=== PATIENT | female | born 1980 | race African-American/Black ===

== ENCOUNTER 2022-05-10 12:26 | Outpatient (REF) | payer OTHER, SELFPAY ==
[2022-05-10 14:48] LABS: Alanine Aminotransferase 30 U/L (0-31); Albumin Level 4.4 g/dL (3.5-5.0); Alkaline Phosphatase 106 U/L (39-117); Anion Gap 12 (12-20); Aspartate Amino Transferase 27 U/L (5-31); Bilirubin Total 0.5 mg/dL (0.0-1.0); Blood Urea Nitrogen 10 mg/dL (9-16); Calcium 9.6 mg/dL (8.4-10.2); Carbon Dioxide 27 mmol/L (22-29); Chloride 105 mmol/L (96-108); Estimated Glomerular Filt Rate > 60; Glucose Random 85 mg/dL (60-115); Potassium 3.9 mmol/L (3.3-5.1); Sodium 140 mmol/L (135-145); Total Protein 7.3 g/dL (6.5-8.0)
[2022-05-10 14:50] LABS: TSH reflex Free T4 1.35 uIU/mL (0.32-4.0); Vitamin D 25-OH Total 40.7 ng/mL (>30)
== END 2022-05-10 12:27 | disposition home or self-care (01) ==
LOC: HO.HMGCLDS 12:26
PROVIDERS: PCP Internal Medicine; Visit Provider Internal Medicine
DX: Z00.00 Encounter for general adult medical examination without abnormal findings (principal); Z83.71 Family history of colonic polyps
CPT/HCPCS: 36415; 80053; 82306; 84443

== ENCOUNTER 2023-05-15 10:40 | Outpatient (AMB) | payer OTHER, SELFPAY ==
[2023-05-15 10:50] VITALS: BP 108/66; PULSE 65; O2SAT 99; BMI 21.6
--- NOTE | 2023-05-15 10:50 | MHC.PC.OV ---
Vital Signs 05/15/23 10:50 Height 5 ft 3 in Weight 122 lb BMI 21.6 BP 108/66 Blood Pressure Location Lt brachial Position Sitting Pulse 65 Pulse Source Pulse Oximeter Pulse Oximetry (%) 99 Oxygen Delivery Method Room Air Intake Visit Reasons: Annual PE Intake Note: Pt is here today for a PE. 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 Allergies bupropion [From Wellbutrin] Allergy (Verified 05/15/23 10:52) Hives Medication List - Last Reconciled 05/15/23 by Kenia Lui MD multivitamin 1 tab PO DAILY sertraline (Zoloft) 25 mg PO DAILY Tobacco use date assessed: 05/15/23 Dental Screening Dental Screen Date: 05/15/23 Did you have a dental visit in the last 12 months?: Yes Did you have a dental problem in the last 6 months where you did not have access to dental care?: No Was dental information given to patient?: Patient has dentist HPI Annual PE HPI Details Pt presents for PE. Pt is going through a divorce. She has been seeing a counselor and would like to try low-dose of antidepressant. She denies insomnia suicidal ideation and reports good appetite. Patient has a [id number] baby boy. [facility] Medical History Hx of endometriosis History of miscarriage Surgical History Hx of section Family History Mother Hypertension Kidney disease Father No problems noted. 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 1. Little interest or pleasure in doing things: not at all 2. Feeling down, depressed, or hopeless: several days 3. Trouble falling or staying asleep, or sleeping too much: not at all 4. Feeling tired or having little energy: several days 5. Poor appetite or overeating: not at all 6. Feeling bad about yourself - or that you are a failure or have let yourself or your family down: not at all 7. Trouble concentrating on things, such as reading the newspaper or watching television: not at all 8. Moving or speaking so slowly that other people could have noticed. Or the opposite - being so fidgety or restless that you have been moving around a lot more than usual: not at all 9. Thoughts that you would be better off or of hurting yourself in some way: not at all Total score: 2 Depression Screening Interpretation: Negative Depression Screening Done: Yes Source: Developed by Drs. West Chávez, Stephenie Dowell, Thee Camacho and colleagues, with an educational kriss from [employer]. Thrive Questionnaire Date Thrive assessed: 05/15/23 I am a: Patient What is your living situation today?: I have a steady place to live Within the past 12 months, did the food you bought not last and you didn't have the money to get more?: Never true Within the past 12 months, did you worry whether your food would run out before you got money to buy more?: Never true Do you have trouble paying for medicines?: No Do you have trouble getting transportation to medical appointments?: No Do you have trouble paying your heating and electricity bill?: No Do you have trouble taking care of your child, family member or friend?: No Do you have trouble with day-to-day activities such as bathing, preparing meals, shopping, managing finances, etc.?: No Are you currently unemployed and looking for a job?: No Are you interested in more education?: No Please select the resources that you would like help with: None Currently or been in a relationship where the following occur: no concerns reported THRIVE Score: 0 AUDIT C Alcohol Use Questionnaire (AUDIT-C) 1. How often do you have a drink containing alcohol?: Monthly or less 2. How many drinks containing alcohol do you have on a typical day when you are drinking?: 1 or 2 3. How often do you have six or more drinks on one occasion?: Never Total Score: 1 BESS-7 AMB Questionnaire BESS-7 Date BESS - 7 assessed: 05/15/23 Feeling nervous, anxious, or on edge: 0 = Not at all Not being able to stop or control worryin = Not at all Worrying too much about different things: 0 = Not at all Trouble relaxin = Not at all Being so restless that it is hard to sit still: 0 = Not at all Becoming easily annoyed or irritable: 0 = Not at all Feeling afraid as if something awful might happen: 0 = Not at all Total BESS-7 score (0-4 normal; 5-9 mild; 10-14 moderate; 15-21 severe): 0 Source: Developed by Drs. West Chávez, Stephenie Dowell, Thee Camacho and colleagues, with an educational kriss from [employer]. Review of Systems Const All systems reviewed & are unremarkable except as noted in HPI and below Reports no additional complaints Eyes Reports no additional complaints ENT Reports no additional complaints Card Reports no additional complaints Resp Reports no additional complaints GI Reports no additional complaints Musc Reports no additional complaints Physical exam (Primary Care) Vital Signs: Last Vital Signs Pulse 65 05/15/23 10:50 BP 108/66 05/15/23 10:50 Pulse Ox 99 05/15/23 10:50 Oxygen Delivery Method Room Air 05/15/23 10:50 BMI result Body Mass Index 21.6 Tobacco/Smoking Status: Tobacco use Status Tobacco use date assessed 05/15/23 05/15/23 10:54 Patient Tobacco Use Status Former Tobacco user 05/15/23 10:50 e-Cigarette/Vaping Use Never Used 05/15/23 10:50 PHQ-9: PHQ-9 Score PHQ-9: Total score 2 05/15/23 10:56 Depression Screening Interpretation: Negative Thrive Assessment: Date of Thrive Assessment Date Thrive assessed 05/15/23 05/15/23 10:56 Currently or been in a relationship where the following occur: no concerns reported Const General: well developed HENMT Head: Yes normal to inspection Ears: hearing grossly normal bilaterally General nose exam: Normal external nose present Eyes General: appearance normal, both eyes and all related structures Neck Neck: Yes supple Resp Effort & Inspection: normal respiratory effort Auscultation: clear to auscultation bilaterally Cardio Rhythm: regular rhythm Heart sounds: S1 normal heart sound present and S2 normal heart sound present GI Inspection: Yes normal to inspection Palpation (GI): Soft to palpation Percussion: Yes normal to percussion Auscultation: normal bowel sounds Assessment and Plan Assessment & Plan (1) Annual physical exam: Code(s): Z00.00 - Encounter for general adult medical examination without abnormal findings Plan: Well-balanced diet regular physical activity discussed with the patient. She follows up with county auditor for pelvic exam and Pap smear (2) Anxiety and depression: Code(s): F41.9 - Anxiety disorder, unspecified; F32.A - Depression, unspecified Plan: Try low-dose of Zoloft 25 mg and follow-up in 6 weeks, continue counseling Medications: New sertraline (Zoloft) 1/2 tabl qd for 1 week then 1 tabl qd 25 mg PO DAILY 30 tabs 1RF Coding Level of Care Code Est Pt Prev Care 40-64y(46077) Diagnoses Annual physical exam Z00.00 Anxiety and depression F41.9; F32.A
== END 2023-05-15 11:31 | disposition home or self-care (01) ==
PROVIDERS: PCP Internal Medicine; Visit Provider Internal Medicine
DX: Z00.00 Encounter for general adult medical examination without abnormal findings (principal); F41.9 Anxiety disorder, unspecified; F32.A Depression, unspecified
CPT/HCPCS: 99396

== ENCOUNTER 2023-07-03 12:31 | Outpatient (AMB) | payer OTHER, SELFPAY ==
[2023-07-03 12:39] VITALS: BP 106/66; PULSE 74; O2SAT 97; BMI 22.3
--- NOTE | 2023-07-03 12:39 | A.OFFPC_ITS ---
Vital Signs 07/03/23 12:39 Height 5 ft 3 in Weight 126 lb BMI 22.3 BP 106/66 Blood Pressure Location Lt brachial Position Sitting Pulse 74 Pulse Source Pulse Oximeter Pulse Oximetry (%) 97 Oxygen Delivery Method Room Air Intake Visit Reasons: 7 week follow up Intake Note: Pt is here today for 7 weeks follow up visit. Allergies bupropion [From Wellbutrin] Allergy (Verified 07/03/23 12:41) Hives Medication List - Last Reconciled 07/03/23 by Kenia Lui MD multivitamin 1 tab PO DAILY sertraline (Zoloft) 25 mg PO DAILY sertraline (Zoloft) 50 mg PO DAILY Tobacco use date assessed: 05/15/23 HPI 7 week follow up HPI Details Patient presents for the follow-up of anxiety. She is feeling better and has been seeing a counselor. Patient reports night sweats on and off and is still . [facility] Medical History Hx of endometriosis History of miscarriage Surgical History Hx of section Family History Mother Hypertension Kidney disease Father No problems noted. 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 1. Little interest or pleasure in doing things: not at all 2. Feeling down, depressed, or hopeless: several days 3. Trouble falling or staying asleep, or sleeping too much: several days 4. Feeling tired or having little energy: several days 5. Poor appetite or overeating: not at all 6. Feeling bad about yourself - or that you are a failure or have let yourself or your family down: not at all 7. Trouble concentrating on things, such as reading the newspaper or watching television: not at all 8. Moving or speaking so slowly that other people could have noticed. Or the opposite - being so fidgety or restless that you have been moving around a lot more than usual: not at all 9. Thoughts that you would be better off or of hurting yourself in some way: not at all Total score: 3 Depression Screening Interpretation: Negative Depression Screening Done: Yes Source: Developed by Drs. West Chávez, Stephenie Dowell, Thee Camacho and colleagues, with an educational kriss from [employer]. Thrive Questionnaire Date Thrive assessed: 05/15/23 I am a: Patient What is your living situation today?: I have a steady place to live Within the past 12 months, did the food you bought not last and you didn't have the money to get more?: Never true Within the past 12 months, did you worry whether your food would run out before you got money to buy more?: Never true Do you have trouble paying for medicines?: No Do you have trouble getting transportation to medical appointments?: No Do you have trouble paying your heating and electricity bill?: No Do you have trouble taking care of your child, family member or friend?: No Do you have trouble with day-to-day activities such as bathing, preparing meals, shopping, managing finances, etc.?: No Are you currently unemployed and looking for a job?: No Are you interested in more education?: No Please select the resources that you would like help with: None THRIVE Score: 0 AUDIT C Alcohol Use Questionnaire (AUDIT-C) 1. How often do you have a drink containing alcohol?: Monthly or less 2. How many drinks containing alcohol do you have on a typical day when you are drinking?: 1 or 2 3. How often do you have six or more drinks on one occasion?: Never Total Score: 1 BESS-7 AMB Questionnaire BESS-7 Date BESS - 7 assessed: 07/03/23 Feeling nervous, anxious, or on edge: 2 = More than half the days Not being able to stop or control worryin = Several days Worrying too much about different things: 1 = Several days Trouble relaxin = Several days Being so restless that it is hard to sit still: 0 = Not at all Becoming easily annoyed or irritable: 1 = Several days Feeling afraid as if something awful might happen: 1 = Several days Total BESS-7 score (0-4 normal; 5-9 mild; 10-14 moderate; 15-21 severe): 7 Source: Developed by Drs. West Chávez, Stephenie Dowell, Thee Camacho and colleagues, with an educational kriss from [employer]. BESS-7 Assessment Billing BESS-7 Assessment Tool: BESS-7 Assessment 18703 Review of Systems Const All systems reviewed & are unremarkable except as noted in HPI and below Reports no additional complaints Eyes Reports no additional complaints ENT Reports no additional complaints Card Reports no additional complaints Resp Reports no additional complaints GI Reports no additional complaints Reports no additional complaints Physical exam (Primary Care) Vital Signs: Last Vital Signs Pulse 74 07/03/23 12:39 BP 106/66 07/03/23 12:39 Pulse Ox 97 07/03/23 12:39 Oxygen Delivery Method Room Air 07/03/23 12:39 BMI result Body Mass Index 22.3 Tobacco/Smoking Status: Tobacco use Status Tobacco use date assessed 05/15/23 07/03/23 12:43 Patient Tobacco Use Status Former Tobacco user 07/03/23 12:43 e-Cigarette/Vaping Use Never Used 07/03/23 12:43 PHQ-9: PHQ-9 Score PHQ-9: Total score 3 07/03/23 12:52 Depression Screening Interpretation: Negative Thrive Assessment: Date of Thrive Assessment Date Thrive assessed 05/15/23 07/03/23 12:43 Const General: no acute distress HENMT Head: Yes normal to inspection Resp Effort & Inspection: normal respiratory effort Auscultation: clear to auscultation bilaterally Cardio Rhythm: regular rhythm Heart sounds: S1 normal heart sound present and S2 normal heart sound present Assessment and Plan Assessment & Plan (1) Anxiety and depression: Code(s): F41.9 - Anxiety disorder, unspecified; F32.A - Depression, unspecified Plan: Increase sertraline to 50 mg a day patient will continue to follow-up with a counselor. She will return in 5 months or p.r.n. (2) Annual physical exam: Code(s): Z00.00 - Encounter for general adult medical examination without abnormal findings Plan: Patient will have a fasting blood work in 5 months when she is planning to stop Orders: Orders Comprehensive Issue. Panel Fast 5 Months F32.A - Depression, unspecified, F41.9 - Anxiety disorder, unspecified, Z00.00 - Encounter for general adult medical examination without abnormal findings Follicle Stimulating Hormone 5 Months F32.A - Depression, unspecified, F41.9 - Anxiety disorder, unspecified, Z00.00 - Encounter for general adult medical examination without abnormal findings Complete Blood Count Auto Diff 5 Months F32.A - Depression, unspecified, F41.9 - Anxiety disorder, unspecified, Z00.00 - Encounter for general adult medical examination without abnormal findings TSH reflex Free T4 5 Months F32.A - Depression, unspecified, F41.9 - Anxiety disorder, unspecified, Z00.00 - Encounter for general adult medical examination without abnormal findings Lipid Panel 5 Months F32.A - Depression, unspecified, F41.9 - Anxiety disorder, unspecified, Z00.00 - Encounter for general adult medical examination without abnormal findings Medications: New sertraline (Zoloft) 50 mg PO DAILY 90 tabs 1RF Discontinued sertraline (Zoloft) 1/2 tabl qd for 1 week then 1 tabl qd Discontinued Reason: Doctor's Order 25 mg PO DAILY 30 tabs 1RF Coding Level of Care Code Est Pt Level 3 (40130) Diagnoses Anxiety and depression F41.9; F32.A Annual physical exam Z00.00 Additional Codes BESS-7 Assessment Billing - BESS-7 Assessment Tool: BESS-7 Assessment 41044 ([id number])
== END 2023-07-03 13:21 | disposition home or self-care (01) ==
PROVIDERS: PCP Internal Medicine; Visit Provider Internal Medicine
DX: F41.9 Anxiety disorder, unspecified (principal); F32.A Depression, unspecified
CPT/HCPCS: 99213

== ENCOUNTER 2024-05-29 08:44 | Outpatient (REF) | payer OTHER, SELFPAY ==
--- OUTSIDE RECORDS SUMMARY | 2024-05-29 08:47 | XMS_ITS | Clinical Summary ---
Author Organization [facility] Address [address] [place] [id number] Care Team Providers Care Equipment Mechanic Specialist Name Role Phone Pcp, No MD Primary Care Provider Unavailabl e Allergies Active Allergy Reactions Criticality Noted Date Comments Bupropion Hcl Rash Low 04/12/2019 Medications COQ10, UBIQUINOL, ORAL Take by mouth. Active prasterone, dhea, (DHEA) 25 mg capsule Take by mouth. Active multivitamin with folic acid (THERAGRAN) 400 mcg tablet Take 1 tablet by mouth daily. Active Social History Tobacco Use Types Packs/Day Years Used Date Smoking Tobacco: Former Cigarettes 0.3 4 Smokeless Tobacco: Never Comments:quit a few yrs ago Alcohol Use Standard Drinks/Week Comments Yes 0 (1 standard drink = 0.6 oz pur e alcohol) occasional Comments No Sex and Gender Information Value Date Recorded Sex Assigned at Not on file Legal Sex Female 7:11 PM EDT Gender Identity Not on file Sexual Orientation Not on file Last Filed Vital Signs Vital Sign Reading Time Taken Comments Blood Pressure 90/55 09/29/2020 12:15 PM EDT Pulse 70 09/29/2020 12:15 PM EDT Temperature 36.6 ??C (97.8 ??F) 09/29/2020 12:15 PM E DT Respiratory Rate 18 09/29/2020 12:15 PM EDT Oxygen Saturation 97% 09/29/2020 12:15 PM EDT Inhaled Oxygen Concentration - - Weight 64.4 kg (142 lb) 09/28/2020 4:14 PM EDT Height 160 cm (5' 3 ) 09/28/2020 4:14 PM EDT Body Mass Index 25.15 09/28/2020 4:14 PM EDT Plan of Treatment Health Maintenance Due Date Last Done Comments Breast Cancer Screening 1980 Pap Smear 07/10/2000 Cervical Cancer Screening 07/10/2009 HPV/Cotest 07/10/2009 COVID-19 Vaccine (4 - season) 2023 03/16/2021, 06/02/2020, 05/12/2020 Influenza Vaccine (#1) 2023 , 02/14/2020, 02/12/2019, Additional history exists Zoster Vaccines (1 of 2) 07/10/2029 DTaP,Tdap,and Td Vaccines (4 - Td or Tdap) 10/12/2031 10/11/2021, 07/27/2019, 12/12/2009, Additional history exists Hepatitis B Vaccines Completed 09/29/2003, 01/16/2003, 11/15/2002 MMR Vaccines Aged Out 05/29/2006 No longer eligi ble based on patient's age to complete this topic Hepatitis A Vaccines Aged Out 2010, 12/13/19 10 No longer eligible based on patient's age to complete this topic HIV Screening Completed 08/29/2018 HPV Vaccines Aged Out No longer eligi ble based on patient's age to complete this topic Meningococcal Vaccine Aged Out No barbara femi eligible based on patient's age to complete this topic Pneumococcal Vaccine: Pediatrics (0 to 5 Years) and At-Risk Patients (6 to 64 Years) Aged Out No longer eligible based on patient's age to complete this topic Procedures Procedure Name Priority Date/Time Associated Diagnosis Comments HIV COMBO ANTIGEN/ANTIBODY Routine 08/29/2018 3:36 AM EDT Encounter for fertility testing Encounter for screening for other viral diseases Encounter for screening for HIV from Last 3 Months or Most Recently Relevant to Health Maintenance Results * HIV combo antigen/antibody (08/29/2018 3:36 AM EDT) HIV Combo AB/AG Negative Negative 08/30/2018 10:07 AM EDT [facility] Blood specimen (specimen) Venous blood specimen / Unknown 08/29/2018 3:36 AM EDT 08/29/2018 7:17 PM EDT Narrative [facility] - 08/30/2018 10:07 AM EDT This test is a 4th generation HIV Antigen-Antibody Combination assay, using a chemiluminescent microparticle immunoassay, for the simultaneous qualitative detection of human immuno- deficiency virus (HIV) p24 antigen and antibodies to HIV type 1 (HIV-1) and/or HIV type 2 (HIV-2) in human serum or plasma. The Shen Label Remover HIV Ag/Ab Combo assay is intended to be used as an aid in the diagnosis of HIV-1 and/or HIV-2 infection, including acute or primary HIV-1 infection. Initially-positive tests are repeated in duplicate. Repeat-positive tests will be confirmed for HIV by a HIV-1/HIV-2 rapid supplemental/ differentiation antibody assay. This testing algorithm is in line with the current CDC recommendations. 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
--- OUTSIDE RECORDS SUMMARY | 2024-05-29 08:47 | XMS_ITS | Clinical Summary ---
Author Organization [facility] Address [address] [place] [address] Care Team Providers Care District Ranger Name Role Phone Unavailable Primary Care Provider Unavailabl e Social History Tobacco Use Types Packs/Day Years Used Date Smoking Tobacco: Never Assessed Sex and Gender Information Value Date Recorded Sex Assigned at Not on file Gender Identity Not on file Sexual Orientation Not on file Plan of Treatment Health Maintenance Due Date Last Done Comments Hepatitis C Virus Screening 1979 HIV Screening 07/10/1992 DTaP/Tdap/Td Vaccines (1 - Tdap) 07/10/1998 Hepatitis B Vaccines (1 of 3 - 19+ 3-dose series) 07/10/1998 COVID-19 Vaccine (2023-2 5 season) 2023 HPV Vaccines Aged Out No longer eligi ble based on patient's age to complete this topic Pneumococcal Vaccine: Pediat vonda (0-5 Years) and At-Risk Patients (6 to 49 Years) Aged Out No longer eligible b ased on patient's age to complete this topic
--- OUTSIDE RECORDS SUMMARY | 2024-05-29 08:47 | XMS_ITS | Continuity of Care Document ---
Author Name [facility] Organization [facility] Care Team Providers Care Piano Accompanist Name Role Phone [facility] Unavailable Unavailable Problems Combined list of problems from Department of Defense and Veterans [facility] facilities. It does not include entries that were removed or entered in error. Problem Status Onset Date Problem Type Date of Resolution Comments Source visit for: administrative purpose Inactive Condition [facility] Medications Combined list of outpatient medications from Department of Defense and Veterans Affairs facilities.Medications provided include 1) outpatient medications from the last 15 months, and 2) patient-reported medications. Medication Details Route Status Patient Instructions Prescription Expires Prescription Number Last Dispense Date Ordering Provider Order Date Order Qty Source SERTRALINE HCL (sertraline HCl), 25 MG, TABLET, ORAL, HemoShe[employer] 90 ea. BOTTLE Active [id number] 2023 30 Pharmac y Data Transac tion Service Facilit y SERTRALINE HCL (sertraline HCl), 25 MG, TABLET, ORAL, CIPLA [employer] 90 ea. BOTTLE Active [id number] 4 2023 30 Pharmac y Data Transac tion Service Facilit y SERTRALINE HCL (sertraline HCl), 50 MG, TABLET, ORAL, [employer] 500 ea. BOTTLE Active [id number] 4 2023 90 Pharmac y Data Transac tion Service Facilit y SERTRALINE HCL (sertraline HCl), 50 MG, TABLET, ORAL, [employer] 500 ea. BOTTLE Active [id number] 4 2023 90 Pharmac y Data Transac tion Service Facilit y SOD SULF-POTASS SULF-MAG SULF (sodium sulfate/pot assium sulfate/mag nesium sulfate), 17.5-3.13G, SOLN RECON, ORAL, LUPIN PHARMACEU, 354 ml BOTTLE Cancele d [id number] : 2023 0 Pharmac y Data Transac tion Service Facilit y SOD SULF-POTASS SULF-MAG SULF (sodium sulfate/pot assium sulfate/mag nesium sulfate), 17.5-3.13G, SOLN RECON, ORAL, LUPIN PHARMACEU, 354 ml BOTTLE Active [id number] 4 2023 354 Pharmac y Data Transac tion Service Facilit y Immunizations Combined list of available immunizations from the Department of Defense and Veterans Affairs facilities. Immunization Series Date Given Administered By Site Reaction Lot Number CVX Code Drug Front End Application Developer Status Comments Source influenza, seasonal, injectable 2020 [id number] Seqirus complet ed influenza , seasonal, injectabl e 02/03/21 Given Ambulat ory Pharmac y COVID Vaccine Pfizer 2020 [id number] PFIZER complet ed COVID Vaccine Pfizer 06/02/20 Given Ambulat ory Pharmac y influenza, seasonal, injectable-pf 2019 [id number] Seqirus complet ed influenza , seasonal, injectabl e-pf 02/14/20 Given Ambulat ory Pharmac y tetanus, diphtheria, acellular pertu is 2019 [id number] sanofi pasteur complet ed tetanus, diphtheri a, acellular pertussis 07/27/19 Given Ambulat ory Pharmac y influenza, seasonal, injectable 2018 [id number] Seqirus complet ed influenza , seasonal, injectabl e 02/12/19 Given Ambulat ory Pharmac y influenza, seasonal, injectable 2017 [id number] Seqirus complet ed influenza , seasonal, injectabl e 02/06/18 Given Ambulat ory Pharmac y influenza, seasonal, injectable 2014 [id number] Unknown complet ed influenza , seasonal, injectabl e 02/05/15 Given Ambulat ory Pharmac y influenza, seasonal, injectable-pf 2013 [id number] CSL Behring complet ed influenza , seasonal, injectabl e-pf 01/12/14 Given Ambulat ory Pharmac y influenza, seasonal, injectable 2012 [id number] 141 GlaxoSmithKli ne complet ed influenza , seasonal, injectabl e 02/25/13 Given Ambulat ory Pharmac y influenza, seasonal, injectable 2012 [id number] 141 GlaxoSmithKli ne complet ed influenza , seasonal, injectabl e 02/25/13 Given Ambulat ory Pharmac y Influenza, seasonal, injectable 1 2012 [id number] 141 SmithKline (SKB) complet ed Influenza , seasonal, injectabl e DoD tuberculin purified protein derivative 2012 Body, whole TRANSCR IBED 96 complet ed Patient Tolerance : Negative Ambulat ory Pharmac y tuberculin skin test; purified protein derivative solution, intradermal 0 2012 96 Transcribed (TRS) complet ed tuberculi n skin test; purified protein derivativ e solution, intraderm al DoD influenza, seasonal, injectable 2011 [id number] [id number] 141 GlaxoSmithKli ne complet ed influenza , seasonal, injectabl e 02/10/12 Given Ambulat ory Pharmac y influenza, seasonal, injectable 2011 [id number] [id number] 141 GlaxoSmithKli ne complet ed influenza , seasonal, injectabl e 02/10/12 Given Ambulat ory Pharmac y Influenza, seasonal, injectable 1 2011 [id number] [id number] 141 SmithKline (SKB) complet ed Influenza , seasonal, injectabl e DoD influenza, seasonal, injectable-pf 2010 [id number] 1A 140 CSL Behring complet ed influenza , seasonal, injectabl e-pf 02/12/11 Given Ambulat ory Pharmac y influenza, seasonal, injectable-pf 2010 [id number] 1A 140 CSL Behring complet ed influenza , seasonal, injectabl e-pf 02/12/11 Given Ambulat ory Pharmac y Influenza, seasonal, injectable, preservative free 2 2010 [id number] 1A 140 CSL [employer] (CS) complet ed Influenza , seasonal, injectabl e, preservat silverio free DoD hepatitis A adult vaccine 2010 [id number] [id number] 52 GlaxoSmithKli ne complet ed hepatitis A adult vaccine 07/11/10 Given Ambulat ory Pharmac y hepatitis A adult vaccine 2010 [id number] 6AA 52 GlaxoSmithKli ne complet ed hepatitis A adult vaccine 07/11/10 Given Ambulat ory Pharmac y hepatitis A vaccine, adult dosage 2 2010 [id number] [id number] 52 SmithKline (SKB) complet ed hepatitis A vaccine, adult dosage DoD influenza virus vaccine,split 2009 [id number] 15 CSL Behring complet ed influenza virus vaccine,s plit 02/06/10 Given Ambulat ory Pharmac y influenza virus vaccine,split 2009 [id number] 15 CSL Behring complet ed influenza virus vaccine,s plit 02/06/10 Given Ambulat ory Pharmac y influenza virus vaccine, split virus (incl. purified surface antigen)-reti red CODE 1 2009 [id number] 15 CSL Paprika [employer] (CSL) complet ed influenza virus vaccine, split virus (incl. purified surface antigen)- retired CODE DoD tetanus, diphtheria, acellular pertu is 2009 [id number] sanofi pasteur complet ed tetanus, diphtheri a, acellular pertussis 12/12/09 Given Ambulat ory Pharmac y hepatitis A adult vaccine 2009 [id number] 2BA 52 GlaxoSmithKli ne complet ed hepatitis A adult vaccine 12/12/09 Given Ambulat ory Pharmac y poliovirus vaccine, live, oral 2009 02 complet ed polioviru s vaccine, live, oral 12/12/09 Given Ambulat ory Pharmac y hepatitis A adult vaccine 2009 [id number] 2BA 52 GlaxoSmithKli ne complet ed hepatitis A adult vaccine 12/12/09 Given Ambulat ory Pharmac y trivalent poliovirus vaccine, live, oral 0 2009 02 () complet ed trivalent polioviru s vaccine, live, oral DoD measles virus vaccine 0 2009 05 () Not Given measles virus vaccine DoD rubella virus vaccine 0 2009 06 () Not Given rubella virus vaccine DoD varicella virus vaccine 0 2009 21 () Not Given varicella virus vaccine DoD hepatitis A vaccine, adult dosage 1 2009 [id number] 2BA 52 [employer] (SKB) complet ed hepatitis A vaccine, adult dosage DoD tetanus toxoid, reduced diphtheria toxoid, and acellular pertu is vaccine, adsorbed 1 2009 [id number] 115 Sanofi Pasteur (PMC) complet ed tetanus toxoid, reduced diphtheri a toxoid, and acellular pertussis vaccine, adsorbed DoD Novel influenza-H1N 1-09, injectable 2009 [id number] 127 sanofi pasteur complet ed Novel influenza -R2Y6-35, injectabl e 09/28/09 Given Ambulat ory Pharmac y Novel influenza-H1N 1-09, injectable 2009 [id number] 127 sanofi pasteur complet ed Novel influenza -M5H3-71, injectabl e 09/28/09 Given Ambulat ory Pharmac y Novel influenza-H1N 1-09, injectable 1 2009 [id number] 127 Sanofi Pasteur ([facility]) complet ed Novel influenza -V9X6-58, injectabl e DoD measles/mumps /rubella virus vaccine 2006 [id number] 03 Merck & Company Inc complet ed measles/m umps/rube lla virus vaccine 05/29/06 Given Ambulat ory Pharmac y measles/mumps /rubella virus vaccine 2006 [id number] 03 Merck & Company Inc complet ed measles/m umps/rube lla virus vaccine 05/29/06 Given Ambulat ory Pharmac y measles, mumps and rubella virus vaccine 1 2006 [id number] 03 Merck (MSD) complet ed measles, mumps and rubella virus vaccine DoD hepatitis B adult vaccine 2003 [id number] A2 43 complet ed hepatitis B adult vaccine 09/29/03 Given Ambulat ory Pharmac y hepatitis B vaccine, adult dosage 3 2003 [id number] A2 43 () complet ed hepatitis B vaccine, adult dosage DoD Td (adult)-PF 2003 [id number] 113 [facility] complet ed Td (adult)-P F 05/30/03 Given Ambulat ory Pharmac y Td (adult)-PF 2003 [id number] 113 [facility] complet ed Td (adult)-P F 05/30/03 Given Ambulat ory Pharmac y tetanus and diphtheria toxoids, adsorbed, preservative free, for adult use (5 Lf of tetanus toxoid and 2 Lf of diphtheria toxoid) 1 2003 [id number] [facility] ([place]) complet ed tetanus and diphtheri a toxoids, adsorbed, preservat silverio free, for adult use (5 Lf of tetanus toxoid and 2 Lf of diphtheri a toxoid) DoD hepatitis B adult vaccine 2002 [id number] A2 43 complet ed hepatitis B adult vaccine 01/16/03 Given Ambulat ory Pharmac y hepatitis B vaccine, adult dosage 2 2002 [id number] A2 43 () complet ed hepatitis B vaccine, adult dosage DoD hepatitis B adult vaccine 2002 [id number] A 43 complet ed hepatitis B adult vaccine 11/15/02 Given Ambulat ory Pharmac y hepatitis B vaccine, adult dosage 1 2002 [id number] A 43 () complet ed hepatitis B vaccine, adult dosage DoD Vital Signs Combined list of inpatient and outpatient Vital Signs from Department of Defense and Veterans Affairs, ranging from 12 months to all on record, depending upon the facility. Vital Sign Value Date Comments Source No data available for this section Ambulatory Pharmacy Encounters Combined list of: 1) Encounters from Department of Veterans Affairs facilities going back up to thelast 18 months. 2) Encounters from the Department of Defense facilities going back up to 280 months. Location Location Details Encounter Type Encounter Number Reason For Visit Attending Provider ADM Date DC Date Status [facility] [place] [id number] [facility] CYN SÁNCHEZ 06/03 Released w/o Limitations [facility] [place]) [id number] MDG Outpatient [id number] STEFANO CLINTONGRA Y 05/14 Discharge Disposition: Home or Self Care [id number] 02 MDG Procedures Combined list of: 1) Procedures from Department of Veterans Affairs facilities going back up to thelast 18 months, not all [place] non-surgical procedures are included; 2) All procedures from the Department of Defense facilities. Procedure Procedure Type Code Date Perfomer Comments Sourc e No data available for this section Ambulatory P harmacy Social History Combined list of available smoking, tobacco, and other social history from Department of Defense and Veterans Affairs facilities. Social History Type Response Date Comment Sourc e This section is an empty social history section. DoD Assessment and Plan Combined list of future care activities from Department of Defense and Veterans Affairs facilities (e.g., assessment and plan notes, appointments, orders, and referrals). Additional future care activities may be listed in the Plan of Care section. Result Assessment and Plan Date Source Assessment and Plan Diagnostic Tests Pen dingHIV-1/O/2 05/14/24Repository Sample, Serum 1/21/25 05/29/2024 Ambulatory Pharmacy Functional Status Combined list of recent functional and cognitive assessments recorded at Department of Defense and Veterans Affairs (VA).VA Functional [place] Measurement (FIM) Scale: 1 = Total Assistance (Subject = 0% +), 2 = Maximal Assistance (Subject = 25% +), 3 = Moderate Assistance (Subject = 50% +), 4 = Minimal Assistance (Subject = 75% +), 5 = Supervision, 6 = Modified [place] (Device), 7 = Complete [place] (Timely, Safely). Assessment Date/Time Source Assessment Type Assessment Skill Assessment Score Assessment Details No data available for this section
[2024-05-29 09:53] LABS: MANUAL DIFF FLAG NO
[2024-05-29 10:01] LABS: Basophils Absolute Auto 0.1 X10*3/uL (0.0-0.2); Basophils Percent Auto 0.7 % (0-2); Eosinophils Percent Auto 0.5 % (0-4); Hematocrit 40.9 % (37.0-47.0); Hemoglobin 13.5 g/dl (12.0-16.0); Imm Gran Abs Auto 0.02 X10*3/uL (0.00-0.03); Imm Gran Pct Auto 0.3 % (0.0-0.4); Lymphocytes Absolute Auto 1.8 X10*3/uL (1.2-4.9); Lymphocytes Percent Auto 24.5 % (20-40); Mean Platelet Volume 11.3 fL (9.4-12.3); Monocytes Absolute Auto 0.3 X10*3/uL (0.1-1.2); Monocytes Percent Auto 4.6 % (2-11); Neutrophils Absolute Auto 5.2 x10*3/uL (2.0-8.3); Neutrophils Percent Auto 69.4 % (45-73); Platelet Count 213 X10*3/uL (160-400); Red Blood Count 4.65 X10*6/uL (4.20-5.50); Red Cell Distribution Width 13.2 % (11.0-16.0); White Blood Count 7.4 X10*3/uL (4.8-10.8)
[2024-05-29 10:24] LABS: Alanine Aminotransferase 19 U/L (0-31); Albumin Level 4.1 g/dL (3.5-5.0); Alkaline Phosphatase 92 U/L (39-117); Anion Gap 8 (12-20); Aspartate Amino Transferase 24 U/L (5-31); Bilirubin Total 0.4 mg/dL (0.0-1.0); Blood Urea Nitrogen 11 mg/dL (9-16); Calcium 8.8 mg/dL (8.4-10.2); Carbon Dioxide 23 mmol/L (22-29); Chloride 110 mmol/L (96-108); Cholesterol 216 mg/dL (<200); Estimated Glomerular Filt Rate > 60; Glucose Fasting 89 mg/dL (60-99); HDL Cholesterol 67 mg/dL (>40); LDL Cholesterol Calculated 141 mg/dL (<100); Potassium 3.9 mmol/L (3.3-5.1); Sodium 137 mmol/L (135-145); Total Protein 7.3 g/dL (6.5-8.0); Triglycerides 43 mg/dL (<150)
[2024-05-31 02:44] LABS: Follicle Stimulating Hormone 5.5 mIU/mL
== END 2024-05-29 08:45 | disposition home or self-care (01) ==
LOC: HO.HMGCLDS 08:44
PROVIDERS: PCP Internal Medicine; Visit Provider Internal Medicine
DX: Z00.00 Encounter for general adult medical examination without abnormal findings (principal); Z13.6 Encounter for screening for cardiovascular disorders; F41.9 Anxiety disorder, unspecified; F32.A Depression, unspecified; Z98.890 Other specified postprocedural states
CPT/HCPCS: 36415; 80053; 80061; 83001; 84443; 85025; 96127

== ENCOUNTER 2025-01-02 11:38 | Outpatient (REF) | payer OTHER, SELFPAY ==
--- OUTSIDE RECORDS SUMMARY | 2025-01-02 15:59 | XMS_ITS | Clinical Summary ---
Author Organization [facility] Address [address] [address] [place] [id number] Phone Care Team Providers Care Glass Installer Name Role Phone Unavailable Primary Care Provider Unavailabl e Allergies Active Allergy Reactions Criticality Noted Date Comments Bupropion Hcl 09/07/2024 Medications sertraline (ZOLOFT) 50 MG tablet Take 1.5 tablets by mouth every morning. 07/13/2024 Active Social History Tobacco Use Types Packs/Day Years Used Date Smoking Tobacco: Never Assessed Education Answer Date Recorded Are you interested in more education? Not on kaur e 09/07/2024 Are you concerned about learning? Not on file 09/07/2024 No 09/07/2024 No 09/07/2024 Digital Access Answer Date Recorded No 09/07/2024 No 09/07/2024 Reliable internet access at home? Not on file 09/07/2024 Device with a working camera? Not on file Comments No Sex and Gender Information Value Date Recorded Sex Assigned at Not on file Legal Sex Female 7:36 PM EST Gender Identity Not on file Sexual Orientation Not on file Last Filed Vital Signs Vital Sign Reading Time Taken Comments Blood Pressure 110/75 09/07/2024 5:00 PM EDT Pulse 75 09/07/2024 5:00 PM EDT Temperature 37 C (98.6 F) 09/07/2024 5:00 PM EDT Respiratory Rate - - Oxygen Saturation 98% 09/07/2024 5:00 PM EDT Inhaled Oxygen Concentration - - Weight - - Height - - Body Mass Index - - Plan of Treatment Not on file Medical Devices Not on file Additional Source Comments The information contained in this document represents components of the legal health record. It is not the complete legal health record.[facility]
--- OUTSIDE RECORDS SUMMARY | 2025-01-02 15:59 | XMS_ITS | Clinical Summary ---
Author Organization [facility] Address [address] [place] [address] Care Team Providers Care Pet Counselor Name Role Phone Unavailable Primary Care Provider Unavailabl e Social History Tobacco Use Types Packs/Day Years Used Date Smoking Tobacco: Never Assessed Comments Unknown Sex and Gender Information Value Date Recorded Sex Assigned at Not on file Legal Sex Female 3:28 PM EDT Gender Identity Not on file Sexual Orientation Not on file Plan of Treatment Health Maintenance Due Date Last Done Comments Hepatitis C Virus Screening 1979 HIV Screening 07/10/1992 DTaP/Tdap/Td Vaccines (1 - Tdap) 07/10/1998 Hepatitis B Vaccines (1 of 3 - 19+ 3-dose series) 07/10/1998 HPV Vaccines (1 - 3-dose SCD M series) 07/10/2006 COVID-19 Vaccine (2023-2 5 season) 2024 Pneumococcal Vaccine: Pediat vonda (0-5 Years) and At-Risk Patients (6 to 49 Years) Aged Out No longer eligible b ased on patient's age to complete this topic
--- OUTSIDE RECORDS SUMMARY | 2025-01-02 15:59 | XMS_ITS | Clinical Summary ---
Author Organization [facility] Address [address] [place] [id number] Care Team Providers Care Patent Law Specialist Name Role Phone Pcp, No MD [...] 70 09/29/2020 12:15 PM EDT Temperature 36.6 C (97.8 F) 09/29/2020 12:15 PM EDT Respiratory Rate 18 09/29/2020 12:15 PM EDT Oxygen Saturation 97% 09/29/2020 12:15 PM EDT Inhaled Oxygen Concentration - - Weight 64.4 kg (142 lb) 09/28/2020 4:14 PM EDT Height 160 cm (5' 3 ) 09/28/2020 4:14 PM EDT Body Mass Index 25.15 09/28/2020 4:14 PM EDT Plan of Treatment Health Maintenance Due Date Last Done Comments Breast Cancer Screening 1979 CT Colonography 1979 Colonoscopy 1979 Colorectal Cancer Screening 1979 FIT-DNA (Cologuard) 1979 FIT 1979 FOBT 1979 Flex Sigmoidoscopy - 5y 1979 Pap Smear 07/10/2000 Cervical Cancer Screening 07/10/2009 HPV/Cotest 07/10/2009 COVID-19 Vaccine (4 - 2024- season) 2024 03/16/2021, 06/02/2020, 05/12/2020 Influenza Vaccine (#1) 2024 , 02/14/2020, 02/12/2019, Additional history exists Zoster [...] 5 Years) and At-Risk Patients (6 to 49 Years) Aged Out No longer eligible based [...] AB/AG Negative Negative 08/30/2018 10:07 AM EDT [facility] Blood specimen (specimen) Venous blood specimen / Unknown 08/29/2018 3:36 AM EDT 08/29/2018 7:17 PM EDT Narrative [facility] - 08/30/2018 10:07 AM EDT This test is a 4th generation HIV Antigen-Antibody Combination assay, using a chemiluminescent microparticle immunoassay, for the simultaneous qualitative detection of human immuno- deficiency virus (HIV) p24 antigen and antibodies to HIV type 1 (HIV-1) and/or HIV type 2 (HIV-2) in human serum or plasma. 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
[2025-01-03 08:36] LABS: HBS Num1 > 1000.00 mIU/mL (0-7.99); ~Hepatitis B Surface Antibody REACTIVE (Nonreactive)
[2025-01-05 20:17] LABS: TS Negative Control Passed; TS Panel A 0; TS Panel B 0; TS Positive Control Passed; TSpotTB Negative (Negative)
== END 2025-01-02 11:39 | disposition home or self-care (01) ==
LOC: HO.HMGCLDS 11:38
PROVIDERS: PCP Internal Medicine; Visit Provider Internal Medicine
DX: Z00.00 Encounter for general adult medical examination without abnormal findings (principal); Z11.1 Encounter for screening for respiratory tuberculosis
CPT/HCPCS: 36415; 86481; 86706